=== PATIENT | male | born 1940 | race Caucasian/White ===

== ENCOUNTER 2016-05-22 09:21 | Outpatient (CLI) | payer MEDICARE ==
[2016-05-22 12:28] LABS: #Basophils 0.1 thou/uL (0.0-0.2); #Eosinphils 0.3 thou/uL (0.0-0.7); #Lymphocytes 2.2 thou/uL (1.20-3.40); #Monocytes 0.8 thou/uL (0.11-0.59); #Neutrophils 5.4 thou/uL (1.40-6.50); %Basophils 1.4 % (0.0-1.0); %Eosinophils 3.2 % (0.0-10.0); %Monocytes 8.7 % (0.0-10.0); %Neutrophils 61.8 % (42.0-75.0); Hemoglobin 14.4 g/dL (14.0-18.0); Mean Corpuscular HGB CONC 31.4 g/dL (32.0-36.0); Mean Corpuscular Hemoglobin 28.6 pg (27.0-31.0); Mean Corpuscular Volume 91.3 fl (80.0-94.0); Mean Platelet Volume 7.2 fL (7.4-10.4); Platelet Count 243 thou/uL (130-400); Red Blood Cell (RBC) Count 5.02 mill/uL (4.70-6.10); White Blood Cell (WBC) Count 8.7 thou/uL (4.8-10.8)
[2016-05-22 13:07] LABS: ALT (SGPT) 17 U/L (0-55); AST (SGOT) 20 U/L (5-34); Albumin 4.3 g/dL (3.4-4.8); Alkaline Phosphatase 92 U/L (40-150); Anion Gap 18 mmol/L (10-20); BUN (Urea Nitrogen) 21 mg/dL (8.4-25.7); Bilirubin, Direct 0.2 mg/dL (0.1-0.3); Bilirubin, Total 0.5 mg/dL (0.2-1.2); Calc. Creatinine Clearance 0 mL/min (70-130); Calcium 9.4 mg/dL (7.8-10.44); Carbon Dioxide 18 mmol/L (23-31); Cardiac Risk 2.7 (Less than 4.5); Chloride 110 mmol/L (98-107); Cholesterol 168 mg/dL (< 200 Desired); Estimated GFR-MDRD 48; Glucose 75 mg/dL (83-110); HDL Cholesterol 62 mg/dL (>60 Neg Risk); LDL Cholesterol, Calculated 93 mg/dL; Potassium 4.3 mmol/L (3.5-5.1); Protein, Total 7.6 g/dL (5.8-8.1); Sodium 142 mmol/L (136-145); Triglycerides 65 mg/dL (Less than 150)
[2016-05-22 13:28] LABS: Hemoglobin A1c 5.5 % (4.0-6.0)
== END 2016-05-22 09:22 ==
LOC: NAVSJIPCSP 09:21
PROVIDERS: ATTEND Family Medicine
DX: I10 Essential (primary) hypertension (principal)
CPT/HCPCS: 36415; 80048; 80061; 80076; 83036; 84443; 85025

== ENCOUNTER 2016-11-02 11:56 | Outpatient (CLI) | payer MEDICARE ==
[2016-11-02 13:52] LABS: #Basophils 0.1 thou/uL (0.0-0.2); #Eosinphils 0.3 thou/uL (0.0-0.7); #Lymphocytes 2.3 thou/uL (1.20-3.40); #Monocytes 0.8 thou/uL (0.11-0.59); #Neutrophils 4.9 thou/uL (1.40-6.50); %Basophils 1.1 % (0.0-1.0); %Eosinophils 3.3 % (0.0-10.0); %Lymphocytes 27.7 % (21.0-51.0); %Monocytes 9.3 % (0.0-10.0); %Neutrophils 58.6 % (42.0-75.0); Hemoglobin 12.9 g/dL (14.0-18.0); Mean Corpuscular HGB CONC 32.2 g/dL (32.0-36.0); Mean Corpuscular Hemoglobin 27.9 pg (27.0-31.0); Mean Corpuscular Volume 86.8 fl (80.0-94.0); Platelet Count 265 thou/uL (130-400); RBC Distribution Width 12.9 % (11.5-14.5); Red Blood Cell (RBC) Count 4.63 mill/uL (4.70-6.10); White Blood Cell (WBC) Count 8.3 thou/uL (4.8-10.8)
[2016-11-02 14:13] LABS: Hemoglobin A1c 5.3 % (4.0-6.0)
[2016-11-02 14:22] LABS: PSA-Asymptomatic (SCREENING) 1.09 ng/mL (0-4.0); Thyroid Stimulating Hormone 0.7767 uIU/mL (0.35-4.94)
[2016-11-02 14:25] LABS: ALT (SGPT) 18 U/L (8-55); AST (SGOT) 21 U/L (5-34); Albumin 4.3 g/dL (3.4-4.8); Alkaline Phosphatase 82 U/L (40-150); Anion Gap 16 mmol/L (10-20); BUN (Urea Nitrogen) 24 mg/dL (8.4-25.7); Bilirubin, Direct 0.2 mg/dL (0.1-0.3); Bilirubin, Total 0.4 mg/dL (0.2-1.2); Calc. Creatinine Clearance 0 mL/min (70-130); Calcium 9.5 mg/dL (7.8-10.44); Carbon Dioxide 19 mmol/L (23-31); Cardiac Risk 2.7 (Less than 4.5); Chloride 109 mmol/L (98-107); Cholesterol 162 mg/dl (< 200 Desired); Estimated GFR-MDRD 47; Glucose 68 mg/dL (83-110); HDL Cholesterol 60 mg/dL (>60 Neg Risk); LDL Cholesterol, Calculated 89 mg/dL; Potassium 4.4 mmol/L (3.5-5.1); Protein, Total 6.8 g/dL (5.8-8.1); Sodium 140 mmol/L (136-145); Triglycerides 65 mg/dL (Less than 150)
== END 2016-11-02 11:57 | disposition home or self-care (01) ==
LOC: NAV LABSP 11:56
PROVIDERS: ATTEND Family Medicine
DX: Z12.5 Encounter for screening for malignant neoplasm of prostate (principal); I73.9 Peripheral vascular disease, unspecified; E78.2 Mixed hyperlipidemia; I10 Essential (primary) hypertension; D64.9 Anemia, unspecified; Z79.899 Other long term (current) drug therapy
CPT/HCPCS: 36415; 80048; 80061; 80076; 83036; 84443; 85025; G0103

== ENCOUNTER 2018-08-06 14:11 | Outpatient (CLI) | payer MEDICARE ==
--- NOTE | 2018-08-06 15:03 | ULT ---
BILATERAL RENAL ULTRASOUND: HISTORY: Right flank pain. Chronic kidney disease. COMPARISON: None. FINDINGS: There are multiple anechoic foci in the liver, compatible with hepatic cysts in the right hepatic lob e. The largest cyst measures 2.7 cm. Right kidney: Large amount of hydronephrosis. Cyst in the lower pole right kidney measures 12.2 x 1 0.8 x 10.6 cm. Right kidney measurements: 19 x 11 x 12 cm. Left kidney: Large amount of hydronephrosis. Cyst in the lower pole left kidney measures 9 x 7 x 4 cm. Left kidney measurements: 14 x 8 x 7 cm. Urinary bladder: Solid mass in the left aspect of the urinary bladder, measuring 2.0 x 1.9 x 2.9 cm. Overall, there is bladder mucosal thickening. IMPRESSION: 1. Severe bilateral hydronephrosis. 2. Bilateral renal cortical cysts. 3. Urinary bladder mucosal thickening with a possible soft tissue mass. Urology consultation is cameron mmended. Transcribed Date/Time: 08/06/2018 3:30 PM
== END 2018-08-06 14:12 | disposition home or self-care (01) ==
LOC: NAV ULT 14:11
PROVIDERS: ATTEND Internal Medicine Nephrology
DX: N18.4 Chronic kidney disease, stage 4 (severe) (principal); N13.30 Unspecified hydronephrosis; N28.1 Cyst of kidney, acquired; N32.89 Other specified disorders of bladder
CPT/HCPCS: 76770

== ENCOUNTER 2022-09-24 13:26 | Emergency (ER) | payer MEDICARE ==
[2022-09-24] MEDS ORDERED: Sodium Chloride 0.9% 1,000 ML ONE (14:11)
[2022-09-24 14:35] LABS: #Basophils 0.1 thou/uL (0.0-0.2); #Eosinphils 0.1 thou/uL (0.0-0.7); #Lymphocytes 1.5 thou/uL (1.20-3.40); #Monocytes 0.9 thou/uL (0.11-0.59); #Neutrophils 8.7 thou/uL (1.40-6.50); %Basophils 0.5 % (0.0-1.0); %Eosinophils 0.9 % (0.0-10.0); %Lymphocytes 13.2 % (21.0-51.0); %Monocytes 7.6 % (0.0-10.0); %Neutrophils 77.8 % (42.0-75.0); Hematocrit 49.2 % (42.0-52.0); Mean Corpuscular HGB CONC 30.5 g/dL (32.0-36.0); Mean Corpuscular Hemoglobin 24.7 pg (27.0-31.0); Mean Corpuscular Volume 81.2 fl (78.0-98.0); Mean Platelet Volume 8.7 fL (7.4-10.4); Platelet Count 223 10x3/uL (130-400); Red Blood Cell (RBC) Count 6.06 mill/uL (4.70-6.10); White Blood Cell (WBC) Count 11.2 10x3/uL (4.8-10.8)
[2022-09-24 14:53] LABS: ALT (SGPT) 26 U/L (8-55); AST (SGOT) 31 U/L (5-34); Albumin 4.2 g/dL (3.4-4.8); Alkaline Phosphatase 150 U/L (40-110); Anion Gap 19 mmol/L (10-20); BUN (Urea Nitrogen) 21 mg/dL (8.4-25.7); Bilirubin, Total 0.7 mg/dL (0.2-1.2); Calc. Creatinine Clearance 0 mL/min (70-130); Calcium 9.5 mg/dL (7.8-10.44); Carbon Dioxide 16 mmol/L (23-31); Chloride 105 mmol/L (98-107); Estimated GFR 60; Globulin 3.2 g/dL (2.4-3.5); Glucose 120 mg/dL (83-110); Potassium 3.7 mmol/L (3.5-5.1); Protein, Total 7.4 g/dL (5.8-8.1); Sodium 136 mmol/L (136-145)
[2022-09-24 15:33] LABS: Bilirubin Negative (Negative); Blood, Urine Small (Negative); Clarity Turbid (Clear); Glucose, Urine (Dipstick) Negative (Negative); Ketone, Urine Negative (Negative); Leukocyte Moderate (Negative); Nitrite Negative (Negative); Protein, Urine (Dipstick) > or equal to 300 mg/dL (Neg-Trace); Specific Gravity, Urine 1.015 (1.005-1.030)
[2022-09-24 15:34] LABS: CAUTI Indications for Culture Alt mental st,lethar
[2022-09-24 15:35] LABS: RBC/HPF 0-3 HPF (0-3); Squamous Epithelial 0-3 HPF (0-3); WBC/HPF Greater Than 50 HPF (0-3)
[2022-09-24 15:36] LABS: Bacteria/HPF 3+ HPF (None Seen)
[2022-09-24 15:37] LABS: Urine Culture Reflex Yes Yes
[2022-09-24] MEDS ORDERED: Sodium Chloride 0.9% 100 ML ONE (16:14)
[2022-09-24] MEDS ORDERED: cefTRIAXone (ROCEPHIN) 1 GM VIAL ONE (16:14)
== END 2022-09-24 17:55 | disposition home or self-care (01) ==
LOC: NAV ERS 13:26
DX: N39.0 Urinary tract infection, site not specified (principal); T67.5XXA Heat exhaustion, unspecified, initial encounter; E86.0 Dehydration; I12.9 Hypertensive chronic kidney disease with stage 1 through stage 4 chronic kidney disease, or unspecified chronic kidney disease; N18.9 Chronic kidney disease, unspecified; H66.91 Otitis media, unspecified, right ear; E78.00 Pure hypercholesterolemia, unspecified; K21.9 Gastro-esophageal reflux disease without esophagitis; E03.9 Hypothyroidism, unspecified; F17.220 Nicotine dependence, chewing tobacco, uncomplicated; Z79.899 Other long term (current) drug therapy
CPT/HCPCS: 36415; 51701; 80053; 81001; 84443; 84484; 85025; 87077; 87086; 87186; 93005; 96361; 96365; J0696; J3490; J7050